=== PATIENT | male | born 2000 | race Caucasian/White ===

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

== ENCOUNTER 2022-03-15 15:40 | Emergency (ER) | payer OTHER, SELFPAY ==
[2022-03-15 15:51] VITALS: BP 123/72; PULSE 65; RESP 16; TEMP 36.4; O2SAT 100
--- NOTE | 2022-03-15 15:58 | ED.SKABFB ---
HPI - Skin/Abscess/Foreign Bdy General Chief complaint: Skin/Abscess/Foreign Body Stated complaint: poison lauren Time Seen by Provider: 03/15/22 15:59 Source: patient Mode of arrival: ambulatory Limitations: no limitations History of Present Illness HPI narrative: 21-year-old presented for complaint of poison lauren rash over most of body surface, sparing his back only, for 2 days. He was clearing brush. Rash is itchy. Denies lip, tongue, throat swelling or itching, shortness of breath or wheezing. He has used [id number] creams and scrubs with minimal relief. complaint: rash Related Data Allergies Allergy/AdvReac Type Severity Reaction Status Date / Time No Known Allergies Allergy Unverified 03/15/22 15:50 Review of Systems Review of Systems: CONSTITUTIONAL: Denies body aches, fever, chills, or sweats. EYES: Reports swelling/itching to eyes Denies visual changes, redness, or discharge. ENT: Denies rhinorrhea, congestion, throat swelling CARDIOVASCULAR: Denies chest pain, palpitations RESPIRATORY: Denies dyspnea. GASTROINTESTINAL: Denies abdominal pain, nausea, vomiting, or diarrhea. SKIN: reports rash, itching PMFSH Comments At time of signature, I have reviewed and agree with nursing past medical, surgical, social and family history unless otherwise noted. Please see nursing chart for further information. There is no relevant family history pertinent to the presenting complaint Exam Narrative: GENERAL: Well-appearing EYES: mild left eye lid swelling, conjunctivae clear, and EOMI. ENT: Mucous membranes moist. Oropharynx without edema, erythema or lesions. CHEST: Clear to auscultation. No respiratory distress. HEART: Regular rate and rhythm. SKIN: Warm, dry. Patches of erythematous papular lesions over body surface, sparing back, c/w contact dermatitis, no signs of infection or cellulitis, no oozing or drainage. NEURO: Alert and oriented x3. PSYCH: Normal mood and affect Course Course Emergency Course: Patient is aware of diagnosis, understands and agrees to treatment plan. Anticipatory guidance given. Patient agrees to follow-up as directed and is aware of reasons to seek care at the emergency department. Portions of this record may have been created with voice recognition software Level of Care: Express Care Visit Vital Signs Vital signs: Vital Signs Temperature 97.6 F 03/15/22 15:51 Pulse Rate 65 03/15/22 15:51 Respiratory Rate 16 03/15/22 15:51 Blood Pressure 123/72 03/15/22 15:51 Pulse Oximetry 100 03/15/22 15:51 Temperature 97.6 F 03/15/22 15:51 Pulse Rate 65 03/15/22 15:51 Respiratory Rate 16 03/15/22 15:51 Blood Pressure 123/72 03/15/22 15:51 Pulse Oximetry 100 03/15/22 15:51 Reviewed MDM - Skin/Abscess/Foreign Bdy MDM Narrative Medical decision making narrative: Does not appear at this time to be erythema multiforme, bullous, SJS, TEN. 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 Will cancel IM steroid and he is instructed to start Medrol tomorrow. No respiratory compromise. Instructed patient to go to nearest ER immediately for any worsening symptoms including but not limited to: fever, spreading rash, pain, sore throat, headache, dizziness, chest pain, trouble breathing, or any symptoms concerning to the patient. Differential Diagnosis Differential diagnosis: Likely abscess of skin or subcutaneous tissue, urticaria, herpes zoster, cellulitis and contact dermatitis Discharge Plan Discharge Clinical Impression: Contact dermatitis Qualifiers: Contact dermatitis type: allergic Contact dermatitis trigger: non-food plants Qualified Code(s): L23.7 - Allergic contact dermatitis due to plants, except food Patient Disposition: Home, Self-Care Condition: Stable Instructions: Contact Dermatitis (ED), Poison Lauren (ED) Additional Instructions: Take the steroid and pepcid prescriptions as directed, start tito
[2022-03-15] MEDS: FAMOTIDINE 20 MG TABLET 40 MG PO (16:18)
== END 2022-03-15 16:27 | disposition home or self-care (01) ==
PROVIDERS: Emergency Provider Nurse Practitioner Family; PCP Emergency Medicine
DX: L23.7 Allergic contact dermatitis due to plants, except food (principal)
CPT/HCPCS: 99213; A9270; G0463